=== PATIENT | male | born 1980 | race African-American/Black ===

== ENCOUNTER → 2022-12-29 09:24 | Outpatient (BNVA) | payer OTHER, SELFPAY | PROVIDERS: Visit Provider Physician Assistant ==

== ENCOUNTER 2022-12-30 08:02 | Outpatient (AMB) | payer OTHER, SELFPAY ==
--- NOTE | 2022-12-30 08:04 | MHC.OFFVISWM ---
Intake VS Expanded 12/30/22 08:10 Height 5 ft 11 in Weight 417 lb 12.8 oz BMI 58.3 BP 170/95 H Blood Pressure Location Rt brachial Blood Pressure Position Sitting Pulse 110 H Pulse Source Pulse Oximeter Temp 97.9 F Temperature Source Temporal Artery Scan Pulse Oximetry 98 Oxygen Delivery Method Room Air Body Fat 201.8 Body Fat Percentage 48.3 Free Fat Mass 216.0 Muscle Mass 205.6 Visceral Mass 39.0 Water Mass 169.0 BMR 3,213 Neck Circumference 18 in Waist Circumference 5 ft 6 in Intake Visit Reasons: (OV) [employer] Allergies No Known Allergies Allergy (Verified 12/30/22 09:15) Medication List - Last Reconciled 12/30/22 by Trell Moreno MD allopurinol 300 mg PO DAILY amlodipine 10 mg PO DAILY furosemide 40 mg PO DAILY labetalol 200 mg PO BID spironolactone 25 mg PO DAILY telmisartan 80 mg PO DAILY HPI HPI Comments History of Present Illness Details Previous weight loss efforts: RD, exercise, self diets Sleeps: a) work days: 4pm-8pm, b) off days: 11pm-8am Breakfast: skips Lunch: 12pm (tamazight food) Dinner: 10pm (pasta) Snacks: none Exercise: joined a gym Fluids: Coffee: 1 cup/day, tea: none, soda: none, juice: crystal light, ETOH: none PFSH Medical History (Updated 12/30/22 @ 09:24 by Trell Moreno MD) DJD (degenerative joint disease) Lower extremity edema Sleep apnea treated with continuous positive airway pressure (CPAP) Gout Hypertension Morbid obesity Surgical History (Updated 12/29/22 @ 09:53 by Leelee Rogers CMA) History of ankle surgery Family History (Updated 12/29/22 @ 09:54 by Leelee Rogers CMA) Mother Hypertension Diabetes Father No problems noted. Social History (Updated 12/29/22 @ 09:53 by Leelee Rogers CMA) Alcohol intake: current Alcohol intake frequency: holidays/special occasions only Patient Tobacco Use Status: Never used Tobacco Physical Exam Vital Signs: Last Vital Signs Temp 97.9 F 12/30/22 08:10 Pulse 110 H 12/30/22 08:10 BP 170/95 H 12/30/22 08:10 Pulse Ox 98 12/30/22 08:10 Oxygen Delivery Method Room Air 12/30/22 08:10 BMI result Body Mass Index 58.3 GI Inspection: Yes normal to inspection (large abdominal pannus) and Yes obesity Palpation (GI): Soft to palpation Extrem Right lower extremity: edema Left lower extremity: edema Assessment & Plan Assessment & Plan (1) Morbid obesity: Code(s): E66.01 - Morbid (severe) obesity due to excess calories Plan: 1.? Nutritional counseling. A) WORK DAYS (Program begins at 12am): Start with 5 protein bars (Zone Perfect protein bars, buy at [place], [employer], [employer], or [employer]) at 12am-2am, 3am-5am and 7am-9am, 10am-12pm and 1pm-3pm, dinner at 4-5pm (14 forks of protein and 14 forks of salad/vegetables) and one Celebrate REBUILD shake with TWO scoops in 10oz almond milk at 9pm-11pm. B) OFF DAYS: Start with 2 Celebrate REBUILD shakes (TWO scoops each in 10oz almond milk) at 9am-11am and 12pm-2pm, one Zone Perfect protein bar at 3pm-5pm, dinner at 6pm (14 forks of protein and 14 forks of salad or vegetables) and 2 Zone Perfect protein bars at 7pm-9pm and 9pm-11pm. Meal to include lean meat (beef, fish, pork, turkey, chicken), or peruvian yogurt, or egg whites, or beans with a salad with olive oil and fruits (berries, pears, apples, kiwi). Avoid salt, breads, potatoes, rice, pasta, desserts. 2. Each shake would be drunk slowly, like coffee in a period of 2 hours. 3. Cut each bar in 4 pieces and eat each piece in 30min ?to make each bar last 2 hours. 4. I emphasized the importance of measuring accurately the food portion and measure it when serving the food in plate 5. The meal portions include 14 full-size forks of meat and 14 full-size forks of salad. You always eat the meat portion but you can replace up to 7 forks for salad/vegetables with rice, potatoes or pasta, or a fruit ?if you like. The less you do it the better weight loss will be. 6. One full-size fork is what it can be scooped on the fork without falling aside and not what can be bit with the fork. Use regular forks like those you find in a typical restaurant. 7.? Please send me weight measurements every other week. Please come at the office for weight checks and send me the measurements. 8. Start stationary bike at a resistance level of 0.0 Increase level by 1.0 every 3 min to a max level of 6.0. Stay at this level for 3 min and then return to level 0.0 and repeat same steps until 400 calories are burned, 4 days per week at least. Velocity target is 10mph and heart rate is 115 bpm. Goal is to burn 2000 calories per week on exercise. 9. Alternatively purchase a stationary bike at home that can track calories. Let me know if you do so I can give you an exercise plan. 10.?Goal is to lose at least 3-4lbs per week 11. Goal to lose 10% of your weight at a minimum, which is about 42lbs. 12. Please follow the diet plan exactly without any change. If you don't like something about the plan or you feel hungry you need to communicate with me so I can help you revise the plan. You should not change the plan yourself. 13. Emphasized the importance of monitoring the blood pressure daily in am when wakes up and two more times throughout the day. If systolic blood pressure is 110 mmHg, or less I explained to the patient that needs to notify us. Also I explained the symptoms of orthostatic hypotension (dizziness and lightheadedness) for which the patient also needs to notify me. (2) Hypertension: Code(s): I10 - Essential (primary) hypertension (3) Gout: Code(s): M10.9 - Gout, unspecified (4) Sleep apnea treated with continuous positive airway pressure (CPAP): Code(s): G47.30 - Sleep apnea, unspecified (5) Lower extremity edema: Code(s): R60.0 - Localized edema (6) DJD (degenerative joint disease): Code(s): M19.90 - Unspecified osteoarthritis, unspecified site Coding Level of Care Code New Pt Level 5 (70565) Diagnoses Morbid obesity E66.01 Hypertension I10 Gout M10.9 Sleep apnea treated with continuous positive airway pressure (CPAP) G47.30 Lower extremity edema R60.0 DJD (degenerative joint disease) M19.90 Time Spent (min) 60
[2022-12-30 08:10] VITALS: BP 170/95; PULSE 110; TEMP 36.6; O2SAT 98; BMI 58.3
== END 2022-12-30 09:36 | disposition home or self-care (01) ==
PROVIDERS: Visit Provider Surgery
DX: E66.01 Morbid (severe) obesity due to excess calories (principal); Z68.43 Body mass index [BMI] 50.0-59.9, adult
CPT/HCPCS: 99205

== ENCOUNTER → 2022-12-30 08:02 | Outpatient (BNVA) | payer OTHER, SELFPAY | PROVIDERS: Visit Provider Surgery ==

== ENCOUNTER → 2023-01-27 07:39 | Outpatient (BNVA) | payer OTHER, SELFPAY | PROVIDERS: Visit Provider Surgery ==